=== PATIENT | male | born 1980 | race Hispanic/Latino ===

== ENCOUNTER 2022-09-25 10:58 | Inpatient (IN) | payer SELFPAY ==
[2022-09-25 10:59] VITALS: BP 117/84; PULSE 92; RESP 14; TEMP 36.8; O2SAT 99; BMI 30.4
--- NOTE | 2022-09-25 11:25 | ED.RN ---
PT STATES THAT HE HAS NO WHERE TO LIVE AT THIS TIME AND HE JUST MOVED HERE FROM [place]. THIS RN ASKS SOCIAL WORK IF THEY COULD ASSIST AND PROVIDE RESOURCES. BEBA RUBIO MADE AWARE.
--- NOTE | 2022-09-25 11:56 | CM.ED ---
DANA Note Referral Source: personal companion Reason: RAMP program, resources DANA and DANA Chi were informed by patient's nurse he was interested in detox program and needed resources due to homelessness. DANA met with patient and reviewed RAMP program, explaining his items would be locked up and would ot have access to outside food, visitors or other items. DANA explained patient would meet with Junior on the following day to develop a plan after detox is complete. DANA provided patient with [employer] resources, highlighting food bank information and housing information. Patient confirmed he was detoxing from fentanyl and heroin, reported an understanding of the program as well as resources provided. SW contact Junior with [facility] to provide demographic information for referral to RAMP program. Belkis Bee [employer], AYDE
--- NOTE | 2022-09-25 12:03 | EX.ED.DYSGE1 ---
HPI History of Present Illness Chief Complaint: Substance Abuse Informant: patient Narrative Narrative: 42-year-old male presenting to the emergency department chief complaint of request for detox. Patient used to live in [place] but he states that his cheated on him and so he left and came to [facility]. He started using heroin after being clean for almost 16 years. He states he been using for at least a month. He states that he last used yesterday. He notes some nausea goosebumps skin and chills. He states that he has been looking into recovery and was suggested that he come to [facility] for inpatient care. [facility] Medical History (Updated 09/25/22 @ 13:[address] Laron Valladares DO) Opiate addiction Medical History no medical history Home Medications NK 09/25/22 [History Last Taken Unknown] Allergy/AdvReac Type Severity Reaction Status Date / Time No Known Allergies Allergy Verified 09/25/22 11:01 Family History no significant family his Surgical History (Updated 09/25/22 @ 12:[address] Laron Valladares DO) H/O hand surgery Surgical History no surgical history Social History (Updated 09/25/22 @ 12:[address] Laron Valladares DO) current gender identity: male Smoking Status: Current every day smoker tobacco type: cigarettes substance use type: heroin EXAM Physical Exam Const Vital Signs: 09/25/22 10:59 Temperature 98.3 F Temperature Source Temporal Pulse Rate 92 Respiratory Rate 14 Blood Pressure 117/84 H Blood Pressure Mean 95 Pulse Ox 99 Oxygen Delivery Method Room Air MDM MDM MDM Narrative Medical decision making narrative: Patient was medically cleared for the detox program. I will speak with our hospitalist regarding admission Lab Data Attestation: I reviewed the patient's lab results. Labs: Laboratory Results - last 24 hr 09/25/22 09/25/22 09/25/22 12:20 12:20 12:20 WBC 11.2 H RBC 5.90 Hgb 18.7 H* Hct 52.8 MCV 89.5 MCH 31.7 MCHC 35.4 RDW Std Deviation 42.5 RDW Coeff of Kylah 13.0 Plt Count 216 MPV 10.1 Immature Gran % (Auto) 0.300 Neut % (Auto) 84.7 H Lymph % (Auto) 9.2 L Phelps % (Auto) 4.6 Eos % (Auto) 0.9 Baso % (Auto) 0.3 Absolute Neuts (auto) 9.5 H Absolute Lymphs (auto) 1.03 Nucleated RBC % 0 Diff Path Review May foll Sodium 139 Potassium 4.2 Chloride 106 Carbon Dioxide 29.0 Anion Gap 4 L BUN 15 Creatinine 1.40 H Estim Creat Clear Calc 65.14 Est GFR (MDRD) Af Amer 71 Est GFR (MDRD) Non-Af 58 L BUN/Creatinine Ratio 10.7 Glucose 125 H Calcium 9.5 Total Bilirubin 0.90 AST 19 ALT 31 Alkaline Phosphatase 84 Total Protein 8.1 Albumin 3.6 Globulin 4.5 H Albumin/Globulin Ratio 0.8 L Urine Opiates Screen Urine Methadone Screen Ur Barbiturates Screen Ur Phencyclidine Scrn Ur Amphetamines Screen MDMA (Ecstasy) Screen U Benzodiazepines Scrn Urine Cocaine Screen U Cannabinoids Screen Ur Drug Screen Comment Ethyl Alcohol < 3.0 09/25/22 13:19 WBC RBC Hgb Hct MCV MCH MCHC RDW Std Deviation RDW Coeff of Kylah Plt Count MPV Immature Gran % (Auto) Neut % (Auto) Lymph % (Auto) Phelps % (Auto) Eos % (Auto) Baso % (Auto) Absolute Neuts (auto) Absolute Lymphs (auto) Nucleated RBC % Diff Path Review Sodium Potassium Chloride Carbon Dioxide Anion Gap BUN Creatinine Estim Creat Clear Calc Est GFR (MDRD) Af Amer Est GFR (MDRD) Non-Af BUN/Creatinine Ratio Glucose Calcium Total Bilirubin AST ALT Alkaline Phosphatase Total Protein Albumin Globulin Albumin/Globulin Ratio Urine Opiates Screen NEGATIVE Urine Methadone Screen NEGATIVE Ur Barbiturates Screen NEGATIVE Ur Phencyclidine Scrn NEGATIVE Ur Amphetamines Screen NEGATIVE MDMA (Ecstasy) Screen NEGATIVE U Benzodiazepines Scrn NEGATIVE Urine Cocaine Screen NEGATIVE U Cannabinoids Screen POSITIVE H Ur Drug Screen Comment Ethyl Alcohol Discharge Plan Triage Chief Complaint: Substance Abuse ED Provider: Laron Valladares Dx/Rx/DC Orders Clinical Impression: Opiate addiction, Opiate withdrawal Prescriptions: No Action NK Primary Care Provider: Care Physician,No Primary Referrals: Care Physician,No Primary [Primary Care Provider] - Disposition Disposition: Acute Care Hospital [facility]
[2022-09-25 12:30] LABS: Absolute Lymphocyte Count 1.03 X10^3/uL (0.83-4.51); Absolute Neutrophil Count 9.5 X10^3/uL (2.0-7.7); Basophil# 0.03 X10^3/uL; Basophil% 0.3 % (0-1); Eosinophils% 0.9 % (0-5); Hematocrit 52.8 % (40-54); Hemoglobin 18.7 g/dL (13.0-16.5); Lymphocyte # 1.03 X10^3/ul (0.83-4.51); Lymphocyte % 9.2 % (19-41); Mean Corp Hgb Conc 35.4 g/dL (32-36); Mean Corpuscular Hgb 31.7 pg (27.0-32.0); Mean Corpuscular Volume 89.5 fL (80-94); Mean Platelet Vol. 10.1 fl (6.2-12.0); Monocyte# 0.52 X10^3/uL; Monocyte% 4.6 % (0-10); NRBC Flagged by Analyzer 0 % (0-5); Neutrophil # 9.51 X10^3/uL (2.7-7.7); Neutrophil % 84.7 % (47-70); Platelet Count 216 K/mm3 (150-450); RBC Distribution Width SD 42.5 fl (35.1-43.9); White Blood Count 11.2 K/mm3 (4.4-11.0)
[2022-09-25 12:47] LABS: ALB/GLOB Ratio 0.8 RATIO (0.9-2.4); AST(SGOT) 19 U/L (15-37); Alanine Aminotransfer ALT/SGPT 31 U/L (16-61); Albumin, Serum 3.6 g/dL (3.2-5.0); Alkaline Phosphatase 84 U/L (45-117); Anion Gap 4 (5-15); BUN 15 mg/dL (7-18); BUN/Creat Ratio 10.7 RATIO (10-20); Calcium,Total 9.5 mg/dL (8.5-10.1); Chloride 106 mmol/L (98-107); EST Glomerular Filtration Rate 58 mL/min (>60); Est Glom Filt Rate - Afr Amer 71 mL/min (>60); Estimated Creatinine Clearance 65.14 ml/min; Globulin 4.5 g/dL (2.2-4.2); Glucose 125 mg/dL (74-106); Potassium 4.2 mmol/L (3.5-5.1); Protein, Total 8.1 g/dL (6.4-8.2); Sodium Level 139 mmol/L (136-145)
[2022-09-25 12:58] LABS: Alcohol, Blood (Medical)-Serum < 3.0 mg/dL
[2022-09-25 12:59] VITALS: RESP 18
[2022-09-25 13:43] LABS: Amphetamine Urine VISTA NEGATIVE (<1000 ng/mL); Barbiturate Urine VISTA NEGATIVE (< 200 ng/mL); Benzodiazepine Urine VISTA NEGATIVE (< 200 ng/mL); Cocaine Urine VISTA NEGATIVE (< 300 ng/mL); Ecstacy Urine VISTA NEGATIVE (< 500 ng/mL); Methadone Urine VISTA NEGATIVE (< 300 ng/mL); PCP Urine VISTA NEGATIVE (< 25 ng/mL); THC Urine VISTA POSITIVE (< 50 ng/mL); Vista UDS pH Range 5
[2022-09-25 14:00] VITALS: RESP 18
[2022-09-25 14:12] VITALS: BP 112/86; PULSE 84; RESP 18; TEMP 36.6; O2SAT 95
--- NOTE | 2022-09-25 14:21 | HP.PCM.HOS_ITS ---
HPI - General General Date of Admission: 09/25/22 Date of Service: 09/25/22 Chief Complaint: Desiring services for opiate detox, acute opiate withdrawal HPI Narrative WENDY PEACE, is a 42 M who presents to the emergency room at [facility] desiring services for opiate detox. Patient has been using IV fentanyl for approximately a month, he states has been clean for 16 years but he had a falling out with his in [place] and moved here from there because he has an aunt in town here. Patient has complaints of chills and some nervousness, he states has been drinking alcohol for the last couple of days to overcome withdrawal symptoms. Patient usually does not drink alcohol however. Patient denies abuse of any other drugs. [facility] Medical History (Updated 09/25/22 @ 13:[address] Laron Valladares DO) Opiate addiction Medical History no medical history Home Medications NK 09/25/22 [History Last Taken Unknown] Allergy/AdvReac Type Severity Reaction Status Date / Time No Known Allergies Allergy Verified 09/25/22 11:01 Family History no significant family his Surgical History (Updated 09/25/22 @ 12:[address] Laron Valladares DO) H/O hand surgery Surgical History no surgical history Social History (Updated 09/25/22 @ 12:[address] Laron Valladares DO) current gender identity: male Smoking Status: Current every day smoker tobacco type: cigarettes substance use type: heroin ROS Constitutional Constitutional: Reports chills, fatigue and malaise; Denies anorexia, change in weight, fever(s), night sweats or weakness Eyes Eyes: Denies blurry vision, change in vision, discharge from eye(s) or eye pain Cardiovascular Cardiovascular: Denies chest pain, claudication, dyspnea on exertion, edema, lightheadedness or palpitations Respiratory/Chest Respiratory/Chest: Denies cough, excessive phlegm production, hemoptysis, productive cough, shortness of breath at rest or shortness of breath with exertion Gastrointestinal Gastrointestinal: Denies abdominal pain, constipation, diarrhea, hematemesis, hematochezia, melena, nausea or vomiting Genitourinary Genitourinary: Denies dysuria, hematuria, urinary frequency, urinary hesitancy, urinary incontinence or urinary urgency Musculoskeletal Musculoskeletal: Denies back pain, joint pain, joint stiffness, joint swelling, myalgias or neck pain Neurologic Neurologic: Denies abnormal gait, abnormal speech, confusion, disequilibrium, dizziness, focal weakness, headache(s), loss of vision, numbness, other visual disturbances, paresthesias, syncope or tingling Psychiatric Psychiatric: Denies anxiety, cognitive impairment, depression, irritability, mood swings or suicidal ideation Endocrine Endocrinology: Denies change in body appearance, cold intolerance, excessive sweating, heat intolerance, polydipsia or polyuria Hematologic/Lymphatic Hematologic/Lymphatic: Denies none, anemia, easy bleeding, easy bruising or lymphadenopathy Allergic/Immunologic Allergic/Immunologic: Denies rhinitis, urticaria, eczemia or asthma Vital Signs Vital Signs Vital Signs: 09/25/22 10:59 09/25/22 12:59 Temperature 98.3 F Temperature Source Temporal Pulse Rate 92 Respiratory Rate 14 18 Blood Pressure 117/84 H Blood Pressure Mean 95 Pulse Ox 99 Oxygen Delivery Method Room Air Weight Weight: 90.718 kg Body Mass Index (BMI) 30.4 Physical Exam Const alert, oriented x3, no apparent distress and average body habitus Constitutional Narrative: Patient appears his stated age General Appearance: cooperative, well kempt and well developed Orientation / Consciousness: awake, oriented to person, oriented to place and oriented to time HEENT normocephalic, head/scalp atraumatic, hearing grossly normal bilaterally and moist oral mucous membranes Eyes PERRL, EOMs intact bilaterally and conjunctivae normal Neck supple, no JVD, thyroid normal and no carotid bruits General: trachea midline Resp normal respiratory effort, no retractions, no use of accessory muscles and clear to auscultation bilaterally Auscultation: Negative for rales, rhonchi or wheezes Cardio regular rate, regular rhythm, S1 normal heart sound, S2 normal heart sound, no murmurs, no rub and no gallops GI normal to inspection, nondistended, normoactive bowel sounds, soft to palpation, non-tender and non-distended Extremity no clubbing, cyanosis or edema Skin no rashes or lesions noted General Skin Exam: no breakdown Neuro oriented x3, CN's II-XII intact bilaterally, moves all extremities, no focal motor deficits and no sensory deficits noted Sensorium / Orientation: awake, alert, oriented to person, oriented to place and oriented to time Speech: speech normal Psych Psych Narrative: Patient appears mildly anxious, he does not appear agitated Results Lab / Micro Data Result Diagrams: 09/25/22 12:20 09/25/22 12:20 Labs: Laboratory Results - last 24 hr 09/25/22 12:20: WBC 11.2 H, RBC 5.90, Hgb 18.7 H*, Hct 52.8, MCV 89.5, MCH 31.7, MCHC 35.4, RDW Std Deviation 42.5, RDW Coeff of Kylah 13.0, Plt Count 216, MPV 10.1, Immature Gran % (Auto) 0.300, Neut % (Auto) 84.7 H, Lymph % (Auto) 9.2 L, [place] % (Auto) 4.6, Eos % (Auto) 0.9, Baso % (Auto) 0.3, Absolute Neuts (auto) 9.5 H, Absolute Lymphs (auto) 1.03, Nucleated RBC % 0, Diff Path Review March09/25/22 12:20: Sodium 139, Potassium 4.2, Chloride 106, Carbon Dioxide 29.0, Anion Gap 4 L, BUN 15, Creatinine 1.40 H, Estim Creat Clear Calc 65.14, Est GFR (MDRD) Af Amer 71, Est GFR (MDRD) Non-Af 58 L, BUN/Creatinine Ratio 10.7, Glucose 125 H, Calcium 9.5, Total Bilirubin 0.90, AST 19, ALT 31, Alkaline Phosphatase 84, Total Protein 8.1, Albumin 3.6, Globulin 4.5 H, Albumin/Globulin Ratio 0.8 L 09/25/22 12:20: Ethyl Alcohol < 3.0 09/25/22 13:19: Urine Opiates Screen NEGATIVE, Urine Methadone Screen NEGATIVE, Ur Barbiturates Screen NEGATIVE, Ur Phencyclidine Scrn NEGATIVE, Ur Amphetamines Screen NEGATIVE, MDMA (Ecstasy) Screen NEGATIVE, U Benzodiazepines Scrn NEGATIVE, Urine Cocaine Screen NEGATIVE, U Cannabinoids Screen POSITIVE H, Ur Drug Screen Comment Assessment & Plan Assessment/Plan (1) Opiate withdrawal: PLAN: Plan 1. Acute opiate withdrawal-patient will be admitted to [facility] 3, he will be seen by addiction director of social media marketing, orders were entered using the opiate withdrawal order set. #2 chronic opiate addiction-complicates care, recovery, management, and prognosis Charges/Coding Visit Charges Inpatient E&M: 43521 Init Hosp L3
[2022-09-25 15:30] VITALS: BP 106/60; PULSE 76; RESP 16; TEMP 37.3; O2SAT 96; BMI 29.9
[2022-09-25] MEDS: Ibuprofen 600 MG Tablet PO (16:01)
[2022-09-25] MEDS: Buprenorphine HCl 2 MG TAB.SUBL SL (16:28)
[2022-09-25] MEDS: Methocarbamol 750 MG Tablet 1500 MG PO (16:28)
[2022-09-25] MEDS: Dicyclomine 10 MG Capsule 20 MG PO (16:28)
[2022-09-26] MEDS: Buprenorphine HCl 2 MG TAB.SUBL SL ×3 (00:23→16:46)
[2022-09-26] MEDS: Ibuprofen 600 MG Tablet PO (00:25)
[2022-09-26 04:00] VITALS: BP 103/72; PULSE 84; RESP 18; TEMP 37.2; O2SAT 94
--- NOTE | 2022-09-26 07:48 | PCM.PN.HOSP ---
Subjective Subjective Follow-up for acute opioid withdrawal syndrome. Objective Data Objective Data Vital Signs: Vital Signs Temp Pulse Resp BP Pulse Ox O2 Del Method 99.0 F 84 18 103/72 94 Room Air 09/26/22 04:00 09/26/22 04:00 09/26/22 04:00 09/26/22 04:00 09/26/22 04:00 09/26/22 04:00 Oxygen Delivery Method Room Air Weight: 197 lb Body Mass Index (BMI) 29.9 Lab / Micro Data Result Diagrams: 09/25/22 12:20 09/25/22 12:20 Labs: Laboratory Results - last 24 hr 09/25/22 12:20: WBC 11.2 H, RBC 5.90, Hgb 18.7 H*, Hct 52.8, MCV 89.5, MCH 31.7, MCHC 35.4, RDW Std Deviation 42.5, RDW Coeff of Kylah 13.0, Plt Count 216, MPV 10.1, Immature Gran % (Auto) 0.300, Neut % (Auto) 84.7 H, Lymph % (Auto) 9.2 L, Churchill % (Auto) 4.6, Eos % (Auto) 0.9, Baso % (Auto) 0.3, Absolute Neuts (auto) 9.5 H, Absolute Lymphs (auto) 1.03, Nucleated RBC % 0, Diff Path Review March09/25/22 12:20: Sodium 139, Potassium 4.2, Chloride 106, Carbon Dioxide 29.0, Anion Gap 4 L, BUN 15, Creatinine 1.40 H, Estim Creat Clear Calc 65.14, Est GFR (MDRD) Af Amer 71, Est GFR (MDRD) Non-Af 58 L, BUN/Creatinine Ratio 10.7, Glucose 125 H, Calcium 9.5, Total Bilirubin 0.90, AST 19, ALT 31, Alkaline Phosphatase 84, Total Protein 8.1, Albumin 3.6, Globulin 4.5 H, Albumin/Globulin Ratio 0.8 L 09/25/22 12:20: Ethyl Alcohol < 3.0 09/25/22 13:19: Urine Opiates Screen NEGATIVE, Urine Methadone Screen NEGATIVE, Ur Barbiturates Screen NEGATIVE, Ur Phencyclidine Scrn NEGATIVE, Ur Amphetamines Screen NEGATIVE, MDMA (Ecstasy) Screen NEGATIVE, U Benzodiazepines Scrn NEGATIVE, Urine Cocaine Screen NEGATIVE, U Cannabinoids Screen POSITIVE H, Ur Drug Screen Comment Physical Exam Narrative Physical exam Patient has a history of Staticin completed 12 weeks of antiviral treatment. He claims he tasted fentanyl 2 packs for last 1 month. Currently no anxiety attack, restlessness. Denies history of chronic liver disease/cirrhosis and its cystic matter including variceal bleed, ascites and encephalopathy General: Alert, Oriented x3, Cooperative HEENT: Atraumatic, PERRLA, EOMI, Normocephalic Oral: No Gingival or Mucosal Lesions/ Ulcerations Neck: Supple, No JVD, Negative Carotid Bruits Lungs: Air entry diminished in bilateral lung bases. No crepitation/rhonchi Cardiovascular: Regular rate, Regular Rhythm, Normal S1, Normal S2, No murmurs Abdomen: Bowel Sounds Present, Soft, Non Tender, Non-Distended : No renal angle tenderness. No suprapubic tenderness. Extremities: No edema, Capillary Refill Less than 3 Seconds Skin: No rashes, No breakdown Musculoskeletal: No Tenderness to Palpation of Joints or Extremities Neurological: Cranial nerves II-XII grossly intact, DTR 2+/4 and Symmetrical, Neuro grossly intact Psych/Mental Status: Flat affect. Assessment & Plan Assessment/Plan (1) Opiate withdrawal: PLAN: Plan 42-year-old male admitted with acute opioid withdrawal symptoms including chills, anxiety, nervousness. He has also been drinking alcohol for last couple days to overcome opioid withdrawal symptoms. Patient has been using fentanyl for approximately a month after he was sober for 16 years. 1. Acute opiate withdrawal syndrome with history of chronic opioid use and disorder: Patient is on scheduled and taper buprenorphine patient other adjunctive medications as needed for symptom control. concert manager consulted for rehab evaluation. Patient is being admitted to [facility]. 2. Patient has been drinking alcohol for last couple days in order to overcome opioid withdrawal symptoms. He usually drinks very occasionally. Denies history of chronic alcohol use disorder and dependence. #3 chronic hep C status post antiviral treatment VTE prophylaxis low risk. Early and active ambulation encouraged. Charges/Coding Visit Charges Inpatient E&M: 37938 Subs Hosp L2
[2022-09-26 10:00] VITALS: BP 109/80; PULSE 82; RESP 16; TEMP 37.2; O2SAT 96
--- NOTE | 2022-09-26 10:48 | CASEMGMT ---
Social Work SW in to met pt. Introduced self and role at the hospital. SW provided pt with self pay resources. SW explained medicaid application and [employer] card. Pt agreeable to completing Medicaid application and stated would give to nurse to return to this SW. SW will fax application when pt has finished the information necessary. BEBA Venegas
--- NOTE | 2022-09-26 11:33 | CASEMGMT ---
Social Work Pt's nurse returned Medicaid application to DANA. [facility] BEBA Veneg[facility]
[2022-09-26 13:09] LABS: Pathologist Review Reviewed
[2022-09-26] MEDS: guaiFENesin/D-Methorphan TAB.SR.12H 1 TABLET PO ×2 (14:57→23:24)
[2022-09-26 16:00] VITALS: BP 121/74; PULSE 88; RESP 18; TEMP 37.6; O2SAT 98
[2022-09-26 21:30] VITALS: BP 109/76; PULSE 80; RESP 18; TEMP 37.2; O2SAT 98
[2022-09-26] MEDS: Methocarbamol 750 MG Tablet 1500 MG PO (23:26)
[2022-09-27] MEDS: Methocarbamol 750 MG Tablet 1500 MG PO ×2 (07:19→15:42)
[2022-09-27] MEDS: Ibuprofen 600 MG Tablet PO ×2 (07:19→20:37)
[2022-09-27 07:20] LABS: Absolute Lymphocyte Count 1.62 X10^3/uL (0.83-4.51); Basophil# 0.04 X10^3/uL; Basophil% 0.7 % (0-1); Eosinophil# 0.04 X10^3/uL; Eosinophils% 0.7 % (0-5); Hematocrit 46.7 % (40-54); Hemoglobin 15.8 g/dL (13.0-16.5); Lymphocyte # 1.62 X10^3/ul (0.83-4.51); Lymphocyte % 29.6 % (19-41); Mean Corp Hgb Conc 33.8 g/dL (32-36); Mean Corpuscular Volume 91.6 fL (80-94); Mean Platelet Vol. 10.8 fl (6.2-12.0); Monocyte# 0.74 X10^3/uL; Monocyte% 13.5 % (0-10); NRBC Flagged by Analyzer 0 % (0-5); Neutrophil # 3.03 X10^3/uL (2.7-7.7); Neutrophil % 55.3 % (47-70); Platelet Count 141 K/mm3 (150-450); RBC Distribution Width CV 12.6 % (11.6-14.6); RBC Distribution Width SD 42.8 fl (35.1-43.9); White Blood Count 5.5 K/mm3 (4.4-11.0)
[2022-09-27 07:29] VITALS: BP 105/72; PULSE 79; RESP 18; TEMP 37.4; O2SAT 96
[2022-09-27 07:30] LABS: Anion Gap 5 (5-15); BUN 12 mg/dL (7-18); BUN/Creat Ratio 10.6 RATIO (10-20); Calcium,Total 8.3 mg/dL (8.5-10.1); Chloride 103 mmol/L (98-107); Creatinine, Serum 1.13 mg/dL (0.70-1.30); EST Glomerular Filtration Rate 75 mL/min (>60); Est Glom Filt Rate - Afr Amer 91 mL/min (>60); Estimated Creatinine Clearance 80.71 ml/min; Glucose 89 mg/dL (74-106); Potassium 3.8 mmol/L (3.5-5.1); Sodium Level 136 mmol/L (136-145)
[2022-09-27] MEDS: guaiFENesin/D-Methorphan TAB.SR.12H 1 TABLET PO ×2 (08:47→20:37)
--- NOTE | 2022-09-27 13:29 | PN.HOSP_ITS ---
Subjective Subjective Patient seen and examined. He complained of still having tremors and withdrawal symptoms. He complained of increased sweating. HE is worried about being discharged tomorrow as he feels he will still be going through withdrawal and is concerned about relapsing. Review of systems is otherwise negative. Objective Data Objective Data Vital Signs: Vital Signs Temp Pulse Resp BP Pulse Ox O2 Del Method 99.4 F H 79 18 105/72 96 Room Air 09/27/22 07:29 09/27/22 07:29 09/27/22 07:29 09/27/22 07:29 09/27/22 07:29 09/27/22 08:51 Oxygen Delivery Method Room Air Weight: 197 lb Body Mass Index (BMI) 29.9 Intake & Output: Intake and Output for Last 24 Hours 09/25/22 09/26/22 09/27/22 23:59 23:59 23:59 Intake Total 750 / 750 Balance 750 / 750 Lab / Micro Data Result Diagrams: 09/27/22 06:50 09/27/22 06:50 Labs: Laboratory Results - last 24 hr 09/27/22 06:50: WBC 5.5, RBC 5.10, Hgb 15.8, Hct 46.7, MCV 91.6, MCH 31.0, MCHC 33.8, RDW Std Deviation 42.8, RDW Coeff of Kylah 12.6, Plt Count 141 L, MPV 10.8, Immature Gran % (Auto) 0.200, Neut % (Auto) 55.3, Lymph % (Auto) 29.6, Mchenry % (Auto) 13.5 H, Eos % (Auto) 0.7, Baso % (Auto) 0.7, Absolute Neuts (auto) 3.0, Absolute Lymphs (auto) 1.62, Nucleated RBC % 0 09/27/22 06:50: Sodium 136, Potassium 3.8, Chloride 103, Carbon Dioxide 28.0, Anion Gap 5, BUN 12, Creatinine 1.13, Estim Creat Clear Calc 80.71, Est GFR (MDRD) Af Amer 91, Est GFR (MDRD) Non-Af 75, BUN/Creatinine Ratio 10.6, Glucose 89, Calcium 8.3 L Physical Exam Const alert, oriented x3 and no apparent distress Constitutional Narrative: anxious HEENT head/scalp atraumatic, moist oral mucous membranes and oropharynx normal HEENT Narrative: diaphoretic Head and Scalp: normocephalic Mouth: oral and palatal mucosa normal Eyes PERRL, EOMs intact bilaterally and conjunctivae normal Neck no lymphadenopathy, supple and no JVD Resp normal respiratory effort, no retractions, no use of accessory muscles and clear to auscultation bilaterally Cardio regular rate, regular rhythm, S1 normal heart sound, S2 normal heart sound and no murmurs GI normal to inspection, nondistended, normoactive bowel sounds Extremity normal to inspection, full ROM and no clubbing, cyanosis or edema Neuro oriented x3, CN's II-XII intact bilaterally, moves all extremities and no focal motor deficits Sensorium / Orientation: awake and alert Motor Exam: strength 5/5 throughout Psych affect normal Mood & Affect: anxious Assessment & Plan Assessment/Plan (1) Opiate withdrawal: PLAN: Plan #Acute opioid withdrawal * on buprenorphine withdrawal protocol. * monitor CINA score * * #CHronic hep C: s/p treatment DVT prophylaxis: low risk, encourage ambulation Disposition: * for DC to [facility] once medically stable. * HE says he just moved here from [place], and is yet to establish residence here in [place]. Case management and RAMP coordinator on board to help navigate care in the community Charges/Coding Visit Charges Inpatient E&M: 82160 Subs Hosp L2
[2022-09-27 14:00] VITALS: BP 108/74; PULSE 69; RESP 18; TEMP 37; O2SAT 97
[2022-09-27 20:45] VITALS: BP 106/67; PULSE 84; RESP 18; TEMP 37.7; O2SAT 95
[2022-09-28] MEDS: traZODone 100 MG Tablet PO (00:07)
[2022-09-28 05:00] VITALS: BP 119/67; PULSE 90; RESP 18; TEMP 37.5; O2SAT 95
[2022-09-28] MEDS: guaiFENesin/D-Methorphan TAB.SR.12H 1 TABLET PO (07:50)
[2022-09-28] MEDS: Ibuprofen 600 MG Tablet PO (07:50)
[2022-09-28] MEDS: Methocarbamol 750 MG Tablet 1500 MG PO (07:51)
[2022-09-28 08:57] VITALS: BP 107/68; PULSE 90; RESP 18; TEMP 38.2; O2SAT 97
--- NOTE | 2022-09-28 09:48 | DCINST_ITS ---
Discharge Instructions Diet Discharge Diet: No restrictions Activity Discharge Activity: Return to Normal Activity Dressing / Incision Call your doctor if you observe: Fever of 101 or Higher, Shortness of breath, Dizziness and Swelling in the ankles Follow Up Care Test Results: Test results from this visit will be discussed in further detail at your follow- up appointment, if applicable. Discharge Plan Admission Admit Date/Time: 09/25/22 14:38 Primary Reason for Your Visit: acute opioid withdrawa; Attending Provider: Karen Gan Primary Care Provider: Care Physician,No Primary Consulting Providers: Zachary Palacio ; Immanuel Lee Instructions Patient Instructions: ED Opioid Withdrawal Discharge Orders/Prescriptions Prescriptions: No Action NK Referrals / Follow Up: Care Physician,No Primary [Primary Care Provider] - Disposition Disposition (needs filled in before D/C Order can be placed): Home, Self Care
--- NOTE | 2022-09-28 09:49 | PCM.DC.SUM ---
Providers Date of Admission: 09/25/22 Date of Discharge: 09/28/22 Primary Care Physician: No Primary Care Phys Reason For Visit: OPIATE WITHDRAWAL Diagnosis Discharge Diagnosis (1) Opiate withdrawal: Status: Acute Code(s): F11.93 - Opioid use, unspecified with withdrawal Plan #Acute opioid withdrawal on buprenorphine withdrawal protocol. monitor CINA score #CHronic hep C: s/p treatment DVT prophylaxis: low risk, encourage ambulation Disposition: for DC to detention once medically stable. HE says he just moved here from [place], and is yet to establish residence here in [place]. Case management and [facility] coordinator on board to help navigate care in the community Medications at Discharge Home Medications NK 09/25/22 Hospital Course Operations None Procedures None Summary of Care Provided Minutes Spent on Discharge: 38 Hospital Course: Patient is a 42-year-old male with past medical history as outlined was admitted through the ED on 09/25/2022 for acute opiate detox. 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 He had also been drinking alcohol to overcome his withdrawal symptoms. Review of symptoms otherwise negative. Urine tox was positive for cannabinoids. He was admitted and managed for acute opioid withdrawal. Started on Protocol with buprenorphine. Patient's symptoms gradually improved and his withdrawal symptoms resolved. HE remained stable and was discharged to a detention on 09/28/2022. HE is to follow up with his PCP and to establish care with [facility] for outpatient rehab services. He did have a mild fever in the hospital but had resolved at time of discharge and was counseled that if fever recurred and persisted he should come back to the ED. Patient seen and examined prior to discharge he felt much better and had no active complaints. He had an uneventful night. Review of systems otherwise negative. Labs and vitals reviewed. Medication reviewed and reconciled. Physical Exam Const alert, oriented x3, no apparent distress and average body habitus Constitutional Narrative: anxious General Appearance: cooperative, comfortable, well kempt and well developed Orientation / Consciousness: awake, oriented to person, oriented to place and oriented to time Exam Limitations: no limitations HEENT normocephalic, head/scalp atraumatic, hearing grossly normal bilaterally, moist oral mucous membranes and oropharynx normal Mouth: oral and palatal mucosa normal Eyes PERRL, EOMs intact bilaterally and conjunctivae normal Neck no lymphadenopathy, supple, no JVD, thyroid normal and no carotid bruits General: trachea midline Resp normal respiratory effort, no retractions, no use of accessory muscles and clear to auscultation bilaterally Auscultation: Negative for rales, rhonchi or wheezes Cardio regular rate, regular rhythm, S1 normal heart sound, S2 normal heart sound, no murmurs, no rub and no gallops GI normal to inspection, nondistended, normoactive bowel sounds, soft to palpation, non-tender and non-distended Extremity normal to inspection, full ROM and no clubbing, cyanosis or edema Skin no rashes or lesions noted General Skin Exam: no breakdown Neuro oriented x3, CN's II-XII intact bilaterally, moves all extremities, no focal motor deficits and no sensory deficits noted Sensorium / Orientation: awake, alert, oriented to person, oriented to place and oriented to time Speech: speech normal Motor Exam: strength 5/5 throughout Psych affect normal Weight / BMI Weight Weight: 197 lb Body Mass Index (BMI) 29.9 ABG / Lab / Microbiology Data Result Diagrams: 09/27/22 06:50 09/27/22 06:50 D/C Instructions Discharge Diet: No restrictions Weight Bearing Status: Weight bearing as tolerated Call your doctor if you observe: Fever of 101 or Higher, Shortness of breath, Dizziness and Swelling in the ankles Meaningful Use Info Meaningful Use Diagnoses (Choose all that apply): None applicable Discharge Plan Admission Admit Date/Time: 09/25/22 14:38 Primary Reason for Your Visit: acute opioid withdrawa; Attending Provider: Karen Gan Primary Care Provider: Care Physician,No Primary Consulting Providers: Zachray Palacio ; Immanuel Lee Instructions Patient Instructions: ED Opioid Withdrawal Discharge Orders/Prescriptions Prescriptions: No Action NK Referrals / Follow Up: Care Physician,No Primary [Primary Care Provider] - Disposition Disposition (needs filled in before D/C Order can be placed): Home, Self Care Charges/Coding Visit Charges Inpatient E&M: 97199 Disch Hosp
[2022-09-28 10:51] VITALS: TEMP 36.8
== END 2022-09-28 10:30 | disposition home or self-care (01) | DRG 897 ==
LOC: ED 13:50 → MS3 14:47
PROVIDERS: Internal Medicine; Admitting Provider Internal Medicine; Emergency Provider Emergency Medicine; Visit Provider Student in an Organized Health Care Education/Training Program
DX: F11.23 Opioid dependence with withdrawal (principal); F17.210 Nicotine dependence, cigarettes, uncomplicated; Z86.19 Personal history of other infectious and parasitic diseases
CPT/HCPCS: 36415; 80048; 80053; 80307; 82077; 85025; 99283